=== PATIENT | male | born 1985 | race Caucasian/White ===

== ENCOUNTER 2019-10-19 11:47 | Emergency (ER) | payer MEDICAID ==
[~2019-10-19] VITALS: Ht 185.4 cm; Wt 57.0 kg
[~2019-10-19 11:47] MED LIST: LIDOcaine 1% W/epiNEPHrine 1:100,000 20ml vial ONE
[2019-10-19 12:13] VITALS: BP 122/78
--- NOTE | 2019-10-19 13:41 | NUR ---
Provider is at bedside to perform an Incision and Drainage of the abscess on the patient's right side of the face.
[2019-10-19] MEDS ORDERED: sulfamethoxazole/trimethoprim DS (800/160mg) tablet PO ONE (13:50)
[2019-10-19] MEDS ORDERED: cephalexin 250mg capsule PO STA (13:50)
[2019-10-19] MEDS ORDERED: BACDS PO (13:52)
[2019-10-19] MEDS ORDERED: CEPH250T PO (13:52)
== END 2019-10-19 14:10 | disposition home or self-care (01) ==
LOC: ER 11:47
DX: L02.01 Cutaneous abscess of face (principal); Z79.899 Other long term (current) drug therapy
CPT/HCPCS: 10060; 99283

== ENCOUNTER 2022-05-02 13:16 | Emergency (ER) | payer MEDICAID ==
[~2022-05-02] VITALS: Ht 182.9 cm; Wt 79.0 kg
[2022-05-02] MEDS ORDERED: normal saline 1000ML IV soln IVB ONE (13:50)
[2022-05-02 14:20] VITALS: BP 140/88
== END 2022-05-02 14:42 | disposition home or self-care (01) ==
LOC: ER 13:16
DX: T40.411A Poisoning by fentanyl or fentanyl analogs, accidental (unintentional), initial encounter (principal); F17.200 Nicotine dependence, unspecified, uncomplicated; Z79.899 Other long term (current) drug therapy; Y92.89 Other specified places as the place of occurrence of the external cause
CPT/HCPCS: 93005; 99283; J7030